=== PATIENT | male | born 1940 | race Caucasian/White ===

== ENCOUNTER 2016-07-14 20:00 | Emergency (ER) | payer MEDICARE ==
[2016-07-14 20:40] VITALS: TEMP 97.8
--- NOTE | 2016-07-14 22:11 | ED ---
General Adult HPI - General Chief complaint: Urogenital Stated complaint: Male Time Seen by Provider: 07/14/16 21:20 Source: patient, RN notes reviewed Mode of arrival: wheelchair Limitations: no limitations - History of Present Illness Initial comments: This is a 76-year-old male who presents with constipation. Patient states he has a history of brain cancer but is currently not receiving treatment for this. Patient states his last bowel movement was 3 days ago. Patient admits to some generalized abdominal discomfort. Patient denies any nausea/vomiting/ diarrhea or hematochezia. Patient states his been a chronic problem for him over the last 1-2 months. Patient states he takes a laxative which usually helps, but it did not help today. Patient admits to diminished appetite. Patient states that today he has been having difficulty urinating and has only been going little amounts throughout the day. Patient denies any burning with urination. Patient denies any history of prostate problems. Patient denies any recent fever, chills, shortness breath, chest pain, back pain, numbness, tingling, hematuria, headache, or visual changes, or any other complaints. - Related Data Home Medications Medication Instructions Recorded Confirmed Tamsulosin HCl [Flomax] 0.4 mg PO HS 01/16/16 06/10/16 traMADol HCL [Ultram] 50 mg PO Q8H PRN 01/16/16 06/10/16 ALPRAZolam [Xanax] 0.25 mg PO BID PRN 06/03/16 06/10/16 Acetaminophen Tab [Tylenol] 650 mg PO Q4H PRN 06/03/16 06/10/16 Ondansetron [Zofran ODT] 8 mg PO Q8H PRN 06/03/16 06/10/16 Polyethylene Glycol 3350 [Miralax] 17 gm PO DAILY PRN 06/03/16 06/10/16 levETIRAcetam [Keppra] 500 mg PO Q12H 06/03/16 06/10/16 Previous Rx's Medication Instructions Recorded Pantoprazole Sodium [Protonix] 40 mg PO BID #60 tablet. 06/06/16 Hydrocortisone/Pramoxine 1 applicate RECTAL TID #1 bottle 06/10/16 [Proctofoam-Hc 1%-1% Foam] Allergies Allergy/AdvReac Type Severity Reaction Status Date / Time Penicillins Allergy Rash/Hives Verified 07/14/16 20:40 Review of Systems ROS Statement: Those systems with pertinent positive or pertinent negative responses have been documented in the HPI. ROS Other: All systems not noted in ROS Statement are negative. Past Medical History Past Medical History: Asthma, Cancer, GERD/Reflux, Hyperlipidemia, Hypertension , Pneumonia, Seizure Disorder Additional Past Medical History / Comment(s): no longer taking mykel ro cholesterol meds, glioblastoma(tumor removed), pre cancerous skin lesions( removed, had hepatitis an mono whild in ther service, enlarged prostate and slightly elevated psa lavel, diverticulitis, cataracts, hiatal hernia, "headaches", currently some balance issues/weak, , on clinical trial immuno therapy(OPDIVO) also taking abx fri-fri-fri prophylactically . card on chart w/ clinical trial coordinators name/ number. History of Any Multi-Drug Resistant Organisms: None Reported Past Surgical History: Appendectomy Additional Past Surgical History / Comment(s): injections to back,skin lesions removed,pre cancerous cells removed from top of head, colonoscopy, brain tumor removed, hemorrrhoidectomy. Past Anesthesia/Blood Transfusion Reactions: No Reported Reaction Past Psychological History: Anxiety, Depression Additional Psychological History / Comment(s): recent mood changes Smoking Status: Former smoker Past Alcohol Use History: Rare Additional Past Alcohol Use History / Comment(s): started smoking 1955,quit 1979 Past Drug Use History: None Reported - Past Family History Brother(s) Family Medical History: Cancer Additional Family Medical History / Comment(s): prostate Sister(s) Family Medical History: Cancer Additional Family Medical History / Comment(s): lung cancer and had- x4 cousins brain cancer(but with them it was'nt the primary cancer) Father Family Medical History: Cancer Mother Family Medical History: CVA/TIA, Diabetes Mellitus, Hypertension General Exam - General Exam Comments Initial Comments: General: The patient is awake and alert, in no distress, and does not appear acutely ill. Eye: Pupils are equal, round and reactive to light, extra-ocular movements are intact. No nystagmus. There is normal conjunctiva bilaterally. No signs of icterus. Ears: TMs pink and pearly with intact cone of light bilaterally. Normal external ear canals Nose: Nasal turbinates pink and moist Mouth and throat: There are moist mucous membranes and no oral lesions. Neck: The neck is supple, there is no tenderness or JVD. Cardiovascular: There is a regular rate and rhythm. No murmur, rub or gallop is appreciated. Respiratory: Lungs are clear to auscultation, respirations are non-labored, breath sounds are equal. No wheezes, stridor, rales, or rhonchi. Gastrointestinal: Mild generalized discomfort with light and deep palpation, soft, non-distended, abdomen without masses or organomegaly noted. There is no rebound or guarding present. No CVA tenderness. Bowel sounds are unremarkable. Rectal: Normal rectal tone, no gross blood present. No stool in the rectal vault. Musculoskeletal: Normal ROM, no tenderness. Strength 5/5. Sensation intact. Radial Pulses equal bilaterally 2+. Neurological: A&O x 3. CN II-XII intact, There are no obvious motor or sensory deficits. Coordination appears grossly intact. Speech is normal. Skin: Skin is warm and dry and no rashes or lesions are noted. Psychiatric: Cooperative, appropriate mood & affect, normal judgment. Limitations: no limitations Course Vital Signs 07/14/16 07/15/16 07/15/16 20:37 00:17 03:41 Temperature 97.8 F Pulse Rate 73 73 81 Respiratory 18 16 16 Rate Blood Pressure 109/61 132/62 131/62 O2 Sat by Pulse 95 98 95 Oximetry Medical Decision Making - Medical Decision Making This is a 76-year-old male presents with constipation 3 days. Patient also complains of some mild urinary retention. During the time of exam patient was able to urinate normally patient states he felt much better after this. On physical exam abdomen is soft, nondistended with mild generalized discomfort with light and deep palpation. Rectal exam with normal rectal tone, no stool in rectal vault, no gross blood present. Labs were drawn and reviewed. A urinalysis was done. Hemoccult was done and was negative. A KUB was done and reviewed showing: Suggestion of mild ileus or enteritis changes in the abdomen. Overall nonobstructive bowel gas pattern. Reportedly by Dr. Merritt. At this time CT of the abdomen and pelvis was done showing: #1 constipation. # 2 mild colonic diverticulosis. #3 enlarged prostate gland. #4 diverticula of the urinary bladder with possible chronic inflammatory process. #5significant interval change. Reported by Dr. Merritt. I discussed these results with the patient. Patient was given an enema and was able to pass a large amount of stool and felt relief of symptoms. Patient denied any urinary complaints at this time. Discussed close follow-up with patient's PCP. Patient states he has a follow-up appointment with Dr. Christian coming up in July. I discussed return parameters.Discussed that patient should follow up with PCP in one to 2 days or return to the [facility] for any worsening symptoms or for any further concerns. Patient was receptive to this plan and patient will be discharged home. I discussed his case with attending physician Dr. Lucero who agrees the plan as stated above. - Lab Data Result diagrams: 07/14/16 22:07 07/14/16 22:07 Lab Results 07/14/16 07/14/16 07/14/16 Range/Units 22:07 22:07 22:07 WBC 4.5 (3.8-10.6) k/uL RBC 4.61 (4.30-5.90) m/uL Hgb 13.8 (13.0-17.5) gm/dL Hct 41.8 (39.0-53.0) % MCV 90.6 (80.0-100.0) fL MCH 29.9 (25.0-35.0) pg MCHC 33.0 (31.0-37.0) g/dL RDW 13.4 (11.5-15.5) % Plt Count 197 (150-450) k/uL Neutrophils % 67 % Lymphocytes % 19 % Monocytes % 9 % Eosinophils % 4 % Basophils % 1 % Neutrophils # 3.0 (1.3-7.7) k/uL Lymphocytes # 0.8 L (1.0-4.8) k/uL Monocytes # 0.4 (0-1.0) k/uL Eosinophils # 0.2 (0-0.7) k/uL Basophils # 0.1 (0-0.2) k/uL Sodium 141 (137-145) mmol/L Potassium 3.8 (3.5-5.1) mmol/L Chloride 105 (98-107) mmol/L Carbon Dioxide 23 (22-30) mmol/L Anion Gap 13 mmol/L BUN 11 (9-20) mg/dL Creatinine 0.80 (0.66-1.25) mg/dL Est GFR (MDRD) Af Amer >60 (>60 ml/min/1.73 sqM) Est GFR (MDRD) Non-Af >60 (>60 ml/min/1.73 sqM) Glucose 94 (74-99) mg/dL Plasma Lactic Acid Paul (0.7-2.0) mmol/L Calcium 9.4 (8.4-10.2) mg/dL Total Bilirubin 0.7 (0.2-1.3) mg/dL AST 20 (17-59) U/L ALT 31 (21-72) U/L Alkaline Phosphatase 45 (38-126) U/L Total Protein 6.5 (6.3-8.2) g/dL Albumin 4.0 (3.5-5.0) g/dL Amylase 65 (30-110) U/L Lipase 97 (23-300) U/L Urine Color Urine Appearance (Clear) Urine pH (5.0-8.0) Ur Specific [place] (1.001-1.035) Urine Protein (Negative) Urine Glucose (UA) (Negative) Urine Ketones (Negative) Urine Blood (Negative) Urine Nitrate (Negative) Urine Bilirubin (Negative) Urine Urobilinogen (<2.0) mg/dL Ur Leukocyte Esterase (Negative) Stool Occult Blood Negative (Negative) 07/14/16 07/14/16 Range/Units 22:07 22:07 WBC (3.8-10.6) k/uL RBC (4.30-5.90) m/uL Hgb (13.0-17.5) gm/dL Hct (39.0-53.0) % MCV (80.0-100.0) fL MCH (25.0-35.0) pg MCHC (31.0-37.0) g/dL RDW (11.5-15.5) % Plt Count (150-450) k/uL Neutrophils % % Lymphocytes % % Monocytes % % Eosinophils % % Basophils % % Neutrophils # (1.3-7.7) k/uL Lymphocytes # (1.0-4.8) k/uL Monocytes # (0-1.0) k/uL Eosinophils # (0-0.7) k/uL Basophils # (0-0.2) k/uL Sodium (137-145) mmol/L Potassium (3.5-5.1) mmol/L Chloride (98-107) mmol/L Carbon Dioxide (22-30) mmol/L Anion Gap mmol/L BUN (9-20) mg/dL Creatinine (0.66-1.25) mg/dL Est GFR (MDRD) Af Amer (>60 ml/min/1.73 sqM) Est GFR (MDRD) Non-Af (>60 ml/min/1.73 sqM) Glucose (74-99) mg/dL Plasma Lactic Acid Paul 1.1 (0.7-2.0) mmol/L Calcium (8.4-10.2) mg/dL Total Bilirubin (0.2-1.3) mg/dL AST (17-59) U/L ALT (21-72) U/L Alkaline Phosphatase (38-126) U/L Total Protein (6.3-8.2) g/dL Albumin (3.5-5.0) g/dL Amylase (30-110) U/L Lipase (23-300) U/L Urine Color Light Yellow Urine Appearance Clear (Clear) Urine pH 6.0 (5.0-8.0) Ur Specific [place] 1.005 (1.001-1.035) Urine Protein Negative (Negative) Urine Glucose (UA) Negative (Negative) Urine Ketones 1+ H (Negative) Urine Blood Negative (Negative) Urine Nitrate Negative (Negative) Urine Bilirubin Negative (Negative) Urine Urobilinogen <2.0 (<2.0) mg/dL Ur Leukocyte Esterase Negative (Negative) Stool Occult Blood (Negative) Disposition Clinical Impression: Constipation Disposition: HOME SELF-CARE Condition: Good Instructions: Constipation (ED) Additional Instructions: Please follow-up with family doctor in one to 2 days. Please return to the [facility] for any worsening symptoms or for any further concerns. Referrals: Fercho Helton MD [Primary Care Provider] - 1-2 days Time of Disposition: 03:31
[2016-07-14 22:37] LABS: Basophils # (A) 0.1 k/uL (0-0.2); Basophils % (A) 1 %; CH 30.4; CHCM 33.7; Eosinophils # (A) 0.2 k/uL (0-0.7); Eosinophils % (A) 4 %; HCT 41.8 % (39.0-53.0); HDW 2.75; HGB 13.8 gm/dL (13.0-17.5); Luc # (Auto) 0.08; Luc % (Auto) 2; Lymphocytes # (A) 0.8 k/uL (1.0-4.8); Lymphocytes % (A) 19 %; MCH 29.9 pg (25.0-35.0); MCV 90.6 fL (80.0-100.0); Mean Platelet Volume 7.8; Monocytes # (A) 0.4 k/uL (0-1.0); Monocytes % (A) 9 %; Neutrophils % (A) 67 %; RBC 4.61 m/uL (4.30-5.90); RDW 13.4 % (11.5-15.5); WBC 4.5 k/uL (3.8-10.6); WBC (Perox) 4.43
[2016-07-14 22:41] LABS: Appearance,Urine Clear (Clear); Bilirubin,Urine Negative (Negative); Glucose,Urine (UA) Negative (Negative); Ketones,Urine 1+ (Negative); Leukocyte Esterase,Urine Negative (Negative); Nitrite,Urine Negative (Negative); Protein,Urine Negative (Negative); Specific Gravity,Urine 1.005 (1.001-1.035); UA Billing (MACRO vs. MICRO) CHEM; Urobilinogen,Urine <2.0 mg/dL (<2.0)
--- NOTE | 2016-07-14 22:47 | XR ---
EXAMINATION TYPE: XR KUB DATE OF EXAM: 07/14/2016 10:06 PM CLINICAL HISTORY: History of appendectomy, generalized abdominal pain and constipation. TECHNIQUE: 2 frontal upright radiographs of abdomen were obtained. COMPARISON: June 10, 2016. FINDINGS: Mild gaseous distention of bowel loops is noted in the abdomen with air-fluid levels with s uggestion of mild ileus or enteritis changes. No significant focal bowel obstruction changes are note d. There is no visceromegaly, pneumoperitoneum, or abnormal calcification appreciated. The lung bas es are clear and the osseous structures are intact. Mild S-shaped scoliosis is noted in the thoracolu mbar spine. IMPRESSION: Suggestion of mild ileus or enteritis changes in the abdomen. Overall nonobstructive bowel gas pattern.
[2016-07-14 22:50] LABS: ALT 31 U/L (21-72); AST 20 U/L (17-59); Alkaline Phosphatase 45 U/L (38-126); Amylase 65 U/L (30-110); Anion Gap 13 mmol/L; Blood Urea Nitrogen 11 mg/dL (9-20); Calcium 9.4 mg/dL (8.4-10.2); Carbon Dioxide 23 mmol/L (22-30); Chloride 105 mmol/L (98-107); Glucose 94 mg/dL (74-99); Non-African American GFR(MDRD) >60 (>60 ml/min/1.73 sqM); Sodium 141 mmol/L (137-145); Total Bilirubin 0.7 mg/dL (0.2-1.3); Total Protein 6.5 g/dL (6.3-8.2)
[2016-07-14 22:55] LABS: Potassium 3.8 mmol/L (3.5-5.1)
[2016-07-14] MEDS ORDERED: RX INFO: IV CONTRAST WAS GIVEN 1 EACH MISC MISCELLANE PRN (23:16)
[2016-07-15 00:23] VITALS: RESP 16
--- NOTE | 2016-07-15 00:24 | CT ---
EXAMINATION TYPE: CT abdomen pelvis w con DATE OF EXAM: 07/14/2016 11:40 PM COMPARISON: 01/16/2016 HISTORY: Constipation CT DLP: 796.20 mGycm Automated exposure control for dose reduction was used. TECHNIQUE: Helical acquisition of images was performed from the lung bases through the pelvis. CONTRAST: Performed without Oral Contrast and with IV Contrast, patient injected with 100 mL of Omnipaque 300. FINDINGS: LUNG BASES: Mild atelectasis and scarring and emphysematous changes are noted in both lung bases. Min or pericardial effusion is suggested on the right side in the axial image 8 anteriorly. LIVER/GB: No significant abnormality is appreciated. PANCREAS: No significant abnormality is seen. SPLEEN: No significant abnormality is seen. ADRENALS: No significant abnormality is seen. KIDNEYS: No significant abnormality is seen. RETROPERITONEAL ADENOPATHY: None visualized Mild atherosclerotic calcification is noted in the abdominal aorta and iliac arteries with tortuosit y. REPRODUCTIVE ORGANS: Enlarged prostate gland is noted with central gland calcification. URINARY BLADDER: Urinary bladder is not well distended. Mild wall thickening is noted in the urinary bladder probably related to chronic inflammation. There are small diverticula in the anterior and ri ght lateral posterior aspect of urinary bladder in the axial image 69. PELVIC ADENOPATHY: None visualized. OSSEOUS STRUCTURES: Multilevel degenerative disc disease changes are noted in the lumbar spine. Mild to moderate dextroscoliosis is noted in the lumbar spine. BOWEL: There is small hiatal hernia. Small bowel loops showed no significant obstruction changes. Colonic bowel loops showed moderate to large amount of fecal material and gas. Mild to moderate colon ic diverticulosis is noted without acute diverticulitis. OTHER: IMPRESSION: 1. CONSTIPATION. 2. MILD COLONIC DIVERTICULOSIS. 3. ENLARGED PROSTATE GLAND. 4. DIVERTICULA OF URINARY BLADDER WITH POSSIBLE CHRONIC INFLAMMATORY PROCESS. 5. NO SIGNIFICANT INTERVAL CHANGE.
[2016-07-15] MEDS ORDERED: ACETAMINOPHEN IV (For NPO) 1,000 MG in EMPTY BAG 1 BAG IVPB STA (02:11)
[2016-07-15 03:42] VITALS: BP 131/62; PULSE 81
== END 2016-07-15 03:41 | disposition home or self-care (01) ==
LOC: EC 20:00
DX: K59.00 Constipation, unspecified (principal); R33.9 Retention of urine, unspecified; N40.0 Benign prostatic hyperplasia without lower urinary tract symptoms; G40.909 Epilepsy, unspecified, not intractable, without status epilepticus; F41.9 Anxiety disorder, unspecified; Z85.841 Personal history of malignant neoplasm of brain; Z79.899 Other long term (current) drug therapy; Z88.0 Allergy status to penicillin; Z87.891 Personal history of nicotine dependence
CPT/HCPCS: 36415; 80053; 82150; 83605; 83690; 85025; 82272; 81003; 87086; 74000; 74177; 96374; 99284; Q9967; J0131

== ENCOUNTER 2016-07-18 06:34 | Emergency (ER) | payer MEDICARE ==
[2016-07-18 06:42] VITALS: BP 143/67; PULSE 64; RESP 18; TEMP 96.8
--- NOTE | 2016-07-18 07:24 | ED ---
General Adult HPI - General Chief complaint: Abdominal Pain Stated complaint: Male Time Seen by Provider: 07/18/16 07:00 Source: patient, RN notes reviewed Mode of arrival: ambulatory Limitations: no limitations - History of Present Illness Initial comments: This is a 76-year-old male who presents emergency department because he is constipated. Patient states he has had a problem with constipation for the last 2 years since she's had brain cancer radiation chemotherapy. Patient states lately he has been getting worse since been to the ER multiple times. Patient states he was here just about 5 days ago. He states in the couldn't sleep because he felt constipated and could not have a bowel movement. Patient denies any specific abdominal pain is more of a diffuse pain there is a little higher than normal. Patient denies any chest pain difficulty breathing or shortness of breath. Patient denies any recent fever or chills. Patient states this is the pain he typically has when he is constipated and last time he came to the emergency department enema relieved his pain. - Related Data Home Medications Medication Instructions Recorded Confirmed Tamsulosin HCl [Flomax] 0.4 mg PO HS 01/16/16 07/18/16 traMADol HCL [Ultram] 50 mg PO Q8H PRN 01/16/16 07/18/16 ALPRAZolam [Xanax] 0.25 mg PO BID PRN 06/03/16 07/18/16 Acetaminophen Tab [Tylenol] 650 mg PO Q4H PRN 06/03/16 07/18/16 Polyethylene Glycol 3350 [Miralax] 17 gm PO DAILY PRN 06/03/16 07/18/16 levETIRAcetam [Keppra] 500 mg PO DAILY 06/03/16 07/18/16 Citalopram Hydrobromide [CeleXA] 10 mg PO DAILY 07/18/16 07/18/16 Docusate [Colace] 100 mg PO DAILY 07/18/16 07/18/16 Omeprazole 20 mg PO DAILY 07/18/16 07/18/16 Sulfamethox-Tmp 800-160Mg [Bactrim 1 tab PO MOWEFR 07/18/16 07/18/16 DS 800-160 mg] Allergies Allergy/AdvReac Type Severity Reaction Status Date / Time Penicillins Allergy Rash/Hives Verified 07/18/16 07:47 Review of Systems ROS Statement: Those systems with pertinent positive or pertinent negative responses have been documented in the HPI. ROS Other: All systems not noted in ROS Statement are negative. Past Medical History Past Medical History: Asthma, Cancer, GERD/Reflux, Hyperlipidemia, Hypertension , Pneumonia, Seizure Disorder Additional Past Medical History / Comment(s): no longer taking mykel ro cholesterol meds, glioblastoma(tumor removed), pre cancerous skin lesions( removed, had hepatitis an mono whild in ther service, enlarged prostate and slightly elevated psa lavel, diverticulitis, cataracts, hiatal hernia, "headaches", currently some balance issues/weak, , on clinical trial immuno therapy(OPDIVO) also taking abx mon-fri-fri prophylactically . card on chart w/ clinical trial coordinators name/ number. History of Any Multi-Drug Resistant Organisms: None Reported Past Surgical History: Appendectomy Additional Past Surgical History / Comment(s): injections to back,skin lesions removed,pre cancerous cells removed from top of head, colonoscopy, brain tumor removed, hemorrrhoidectomy. Past Anesthesia/Blood Transfusion Reactions: No Reported Reaction Past Psychological History: Anxiety, Depression Additional Psychological History / Comment(s): recent mood changes Smoking Status: Former smoker Past Alcohol Use History: Rare Additional Past Alcohol Use History / Comment(s): started smoking 1955,quit 1979 Past Drug Use History: None Reported - Past Family History Brother(s) Family Medical History: Cancer Additional Family Medical History / Comment(s): prostate Sister(s) Family Medical History: Cancer Additional Family Medical History / Comment(s): lung cancer and had- x4 cousins brain cancer(but with them it was'nt the primary cancer) Father Family Medical History: Cancer Mother Family Medical History: CVA/TIA, Diabetes Mellitus, Hypertension General Exam - General Exam Comments Initial Comments: GENERAL: Patient is well-developed and well-nourished. Patient is nontoxic and well- hydrated and is in mild distress. ENT: Neck is soft and supple. No significant lymphadenopathy is noted. Oropharynx is clear. Moist mucous membranes. Neck has full range of motion without eliciting any pain. EYES: The sclera were anicteric and conjunctiva were pink and moist. Extraocular movements were intact and pupils were equal round and reactive to light. Eyelids were unremarkable. PULMONARY: Unlabored respirations. Good breath sounds bilaterally. No audible rales rhonchi or wheezing was noted. CARDIOVASCULAR: There is a regular rate and rhythm without any murmurs gallops or rubs. ABDOMEN: Soft and nontender with normal bowel sounds. No palpable organomegaly was noted. There is no palpable pulsatile mass. SKIN: Skin is clear with no lesions or rashes and otherwise unremarkable. NEUROLOGIC: Patient is alert and oriented x3. Cranial nerves II through XII are grossly intact. Motor and sensory are also intact. Normal speech, volume and content. Symmetrical smile. MUSCULOSKELETAL: Normal extremities with adequate strength and full range of motion. LYMPHATICS: No significant lymphadenopathy is noted PSYCHIATRIC: Normal psychiatric evaluation. Limitations: no limitations Course Vital Signs 07/18/16 06:39 Temperature 96.8 F L Pulse Rate 64 Respiratory 18 Rate Blood Pressure 143/67 O2 Sat by Pulse 96 Oximetry Medical Decision Making - Medical Decision Making KUB shows constipation Patient received an enema with good results and is requesting to leave to go to his doctor's appointment. Disposition Clinical Impression: Constipation Disposition: HOME SELF-CARE Condition: Good Instructions: Constipation (ED), High Fiber Diet (ED) Referrals: Fercho Helton MD [Primary Care Provider] - 1-2 days Time of Disposition: 09:40
--- NOTE | 2016-07-18 07:58 | XR ---
EXAMINATION TYPE: XR KUB DATE OF EXAM: 07/18/2016 7:33 AM COMPARISON: 07/14/2016 INDICATION: Constipation TECHNIQUE: Single view abdomen frontal projection FINDINGS: Nonspecific bowel gas is present within small bowel loops as well as the colon. No mass effect is bonifacio dent. Psoas margins are normal. No organomegaly is present. Scoliosis is within the lumbar spine. No significant fecal retention is evident. IMPRESSION: 1. Nonspecific abdomen. Significant fecal retention is not evident.
== END 2016-07-18 09:42 | disposition home or self-care (01) ==
LOC: EC 06:34
DX: K59.00 Constipation, unspecified (principal); G40.909 Epilepsy, unspecified, not intractable, without status epilepticus; N40.0 Benign prostatic hyperplasia without lower urinary tract symptoms; K21.9 Gastro-esophageal reflux disease without esophagitis; F32.9 Major depressive disorder, single episode, unspecified; F41.9 Anxiety disorder, unspecified; Z79.899 Other long term (current) drug therapy; Z87.891 Personal history of nicotine dependence; Z85.841 Personal history of malignant neoplasm of brain; Z88.0 Allergy status to penicillin
CPT/HCPCS: 74000; 99284